=== PATIENT | female | born 1955 | race Caucasian/White ===

== ENCOUNTER → 2020-10-07 10:15 | Outpatient (CLI) | payer MEDICARE, SELFPAY ==
--- NOTE | 2020-10-07 10:18 | DI.RAD.S_ITS ---
PROCEDURE: XR LUMBAR SPINE MIN 4V INDICATIONS: lumbar radiculopathy TECHNIQUE: 5 views of the lumbar spine were acquired, including bilateral oblique views. COMPARISON: None. FINDINGS: Bones: 5 nonrib-bearing vertebrae are present. There is normal bony alignment. No vertebral body compression fractures. No suspicious bony lesions. Note is made of a minimal degree of degenerative disc height reduction but facet osteoarthritis is more prominent and becomes progressively more pronounced from L3 through S1. Soft tissues: Overlying bowel gas pattern is normal. No suspicious soft tissue calcifications. Oblique images: No pars defects. IMPRESSION: No compression fracture seen. Mild degenerative disc disease. Progressively greater facet osteoarthritis from L3 through S1 as the likely cause of significant back pain and reported radiculopathy. Dictated by: Chandan Monterroso M.D. on 10/07/2020 at 10:42 Approved by: Chandan Monterroso M.D. on 10/07/2020 at 10:43
== END ==
PROVIDERS: PCP Internal Medicine; Referring Provider Physical Medicine & Rehabilitation; Visit Provider Physical Medicine & Rehabilitation
DX: M51.16 Intervertebral disc disorders with radiculopathy, lumbar region (principal); M47.26 Other spondylosis with radiculopathy, lumbar region; M47.27 Other spondylosis with radiculopathy, lumbosacral region; M32.9 Systemic lupus erythematosus, unspecified; Z86.711 Personal history of pulmonary embolism
CPT/HCPCS: 72110; 99214

== ENCOUNTER 2020-12-17 12:36 | Outpatient (CLI) | payer MEDICARE, SELFPAY ==
--- NOTE | 2020-12-17 12:40 | DI.RAD.S_ITS ---
PROCEDURE: PAIN L/S TRANSFORAMINAL INJECT INDICATIONS: SPONDYLOSIS COMPARISON: None. FINDINGS: Fluoroscopic spot filming was performed to verify placement of spinal needles at the left L4-5 foramen level(s), as labeled on the films. Appropriate location(s) of the needle tip(s) was confirmed by injection of iodinated contrast. IMPRESSION: Successful needle tip localization on the left for transforaminal epidural steroid injection. Dictated by: Chandan Monterroso M.D. on 12/17/2020 at 16:15 Approved by: Chandan Monterroso M.D. on 12/17/2020 at 16:15
[2020-12-17 13:14] VITALS: BP 168/84; PULSE 68; RESP 17; TEMP 36.7; O2SAT 100
[2020-12-17] MEDS: IOPAMIDOL 15 ML VIAL 3 ML INJ (13:47)
[2020-12-17] MEDS: BUPIVACAINE 0.25% (PF) VIAL 2 ML INJ (13:48)
[2020-12-17] MEDS: DEXAMETHASONE 10 MG/ML VIAL 20 MG INJ (13:48)
[2020-12-17] MEDS: BETAMETHASONE 30 MG/5 ML MDV 6 MG INJ (13:48)
[2020-12-17 13:50] VITALS: BP 190/91; PULSE 66; RESP 10; O2SAT 100
[2020-12-17 13:51] VITALS: BP 175/84; PULSE 65; RESP 10; O2SAT 100
[2020-12-17 13:54] VITALS: BP 175/84; PULSE 68; RESP 10; O2SAT 100
--- NOTE | 2020-12-17 14:01 | P.PCN_ITS ---
Date/Time/Diagnoses Date of procedure: 12/17/20 Time of procedure: 14:01 Pre-procedure diagnosis: 1. FORAMINAL STENOSIS WITH LE SYMPTOMS Post-procedure diagnosis: same Procedure Notes Procedure: 1. FLUOROSCOPICALLY GUIDED CONTRAST CONTROLLED TRANSFORAMINAL EPIDURAL STEROID INJECTION - LEFT L4/5 Indications: Phuong is referred by Dr. Le for treatment of Foraminal Stenosis with Left LE Symptoms Physician: Brady Meza Total Fluoroscopy time (seconds): 20 Total sedation minutes: 0 Complications: none Procedure in detail & Post-procedure care: FINDINGS Foraminal Nerve Root Compression secondary to disc disease and facet hypertrophy DESCRIPTION OF PROCEDURE Following review of allergy and review of potential side effects and complications, including, but not necessarily limited to, infection, allergic reaction, local tissue breakdown, stroke, temporary or permanent nerve injury, paralysis, and possible , the patient indicated that the patient understood and agreed to proceed. An informed consent document was signed by the patient, witnessed by a nurse, and placed in the patient's chart. Additionally, other treatment options including medications, modalities, and physical therapy were reviewed with the patient. After review of previous anaesthesic history and IV conscious sedation the patient was deemed safe to proceed with today?s procedure with IV conscious sedation as ASA class II designation. Safety time-out was performed to confirm patient ID, procedure to be performed and site of procedure. IV sedation was deemed unnecessary and thus not administered by the RN after DO order, titrated to patient comfort during the course of the procedure while the patient remained responsive to all verbal commands In the prone position following sterile prep and drape of the lumbar region, the left L4/5 posterior neuroforamen was identified fluoroscopically. The skin was anesthetized via a 25-gauge 1.5-inch needle with 1% lidocaine solution. At this point, a 22-gauge 5-inch spinal needle was atraumatically introduced and advanced under fluoroscopic guidance through the posterior left L4/5 neuroforamen to approximately the anterior aspect of the canal. Depth was confirmed on lateral view. Following negative aspiration, injection of approximately 1.5 cc of Isovue 200 under live fluoroscopy in the AP view confirmed excellent flow along the nerve root, into the epidural space without vascular or intrathecal uptake observed Radiological data, including multiple fluoroscopic views of the lumbosacral spine, reveal a spinal needle at the left L4/5 posterior neuroforamen. Subsequent views show flow of contrast material flowing superiorly and inferiorly along the nerve root confirming epidural flow. Subsequently, a test dose of 1.5 cc of 1% lidocaine solution was administered and patient was observed for two minutes for signs or symptoms of complications, including abdominal pain, shortness of breath, bilateral upper or lower extre mity weakness, nausea and vomiting, prior to steroid injection. At this point, a total of 3cc or 20mg of dexamethasone and 6mg of betamethasone was injected without incident. The procedure tolerated the procedure well without signs or symptoms of complications prior to transfer to the recovery area continued monitoring without incident. The patient was then transferred to the recovery area where they were observed for an appropriate time after the injection. The patient reported a VAS score of 7 prior to the procedure and a post- procedure VAS of 0. POST OP INSTRUCTIONS The patient was provided a Pain Log to continue to record their response to the target-specific procedure prior to follow-up visit with their referring physician. Additionally, specific post-injection care instructions and a contact number to our office were provided if concerns arise regarding possible complications associated with the procedure are suspected.
== END 2020-12-17 14:29 | disposition home or self-care (01) ==
LOC: RAD 12:39
PROVIDERS: PCP Internal Medicine; Referring Provider Physical Medicine & Rehabilitation; Visit Provider Physical Medicine & Rehabilitation
DX: M48.061 Spinal stenosis, lumbar region without neurogenic claudication (principal); M51.16 Intervertebral disc disorders with radiculopathy, lumbar region
CPT/HCPCS: 64483; J0702; J1100; J2250; J3010

== ENCOUNTER 2021-02-20 08:10 | Outpatient (CLI) | payer MEDICARE, SELFPAY ==
[2021-02-20] VITALS (9 sets, daily range): BP systolic 137–179; BP diastolic 69–85; PULSE 72–84; RESP 16–25; TEMP 36.8; O2SAT 96–100
--- NOTE | 2021-02-20 08:11 | DI.RAD.S_ITS ---
PROCEDURE: PAIN L/S FACET INJ/BLK 1ST TONEY COMPARISON: [facility], XA, PAIN L/S TRANSFORAMINAL INJECT, 12/17/2020, 13:47. INDICATIONS: Bilateral L3-4 L4-5 facet joint injections FINDINGS: Fluoroscopic spot filming was performed to verify placement of spinal needles at the left L3-L4, L4-L5, and L5-S1 levels, as labeled on the films. Appropriate location of the needle tips was confirmed by injection of iodinated contrast. IMPRESSION: Intraprocedural examination within normal limits. Dictated by: Franco Hart M.D. on 02/20/2021 at 10:10 Approved by: Franco Hart M.D. on 02/20/2021 at 10:11
[2021-02-20] MEDS: MIDAZOLAM 5 MG/5 ML VIAL IV (09:44)
[2021-02-20] MEDS: fentaNYL 100 MCG/2 ML INJ 50 MCG IV (09:44)
[2021-02-20] MEDS: BUPIVACAINE 0.5% (PF) VIAL 5 ML INJ (09:52)
[2021-02-20] MEDS: IOPAMIDOL 15 ML VIAL 3 ML INJ (09:52)
[2021-02-20] MEDS: BETAMETHASONE 30 MG/5 ML MDV 12 MG INJ (09:53)
[2021-02-20] MEDS: LIDOCAINE 1% 20 ML 10 ML INJ (09:53)
--- NOTE | 2021-02-20 09:57 | P.PCN_ITS ---
Date/Time/Diagnoses Date of procedure: 02/20/21 Time of procedure: 09:57 Pre-procedure diagnosis: 1. FACET ARTHROPATHY, 2. AXIAL LBP, 3. MULTILEVEL DDD Post-procedure diagnosis: same Procedure Notes Procedure: 1. FLUOROSCOPICALLY GUIDED CONTRAST CONTROLLED FACET JOINT INJECTIONS LEFT L3/4, L4/5, L5/S1 Indications: Phuong is referred by Dr. Le for treatment of Axial LBP Physician: Brady Meza Total Fluoroscopy time (seconds): 9 Total sedation minutes: 10 Complications: none Procedure in detail & Post-procedure care: FINDINGS Multilevel Facet Arthropathy with Clinically significant axial LBP DESCRIPTION OF PROCEDURE Fluoroscopically guided, contrast-controlled left L3/4, L4/5, L5/S1 facet joint injections. Following review of allergy and review of potential side effects and complications, including, but not necessarily limited to, infection, allergic reaction, local tissue breakdown, stroke, temporary or permanent nerve injury, paralysis, and possible , the patient indicated that the patient understood and agreed to proceed. An informed consent document was signed by the patient, witnessed by a nurse, and placed in the patient's chart. Additionally, other treatment options including medications, modalities, and physical therapy were reviewed with the patient. After review of previous anaesthesic history and IV conscious sedation the patient was deemed safe to proceed with today?s procedure with IV conscious sedation as ASA class II designation. Safety time-out was performed to confirm patient ID, procedure to be performed and site of procedure. IV sedation was accomplished with a combination of 4mg of Versed and 50mcg of Fentanylwas administered by the RN after DO order, titrated to patient comfort during the course of the procedure while the patient remained responsive to all verbal commands. In the prone position, following sterile prep and drape of the lumbar region, the posterior aspect of the left L3/4, L4/5, L5/S1 facet joints were identified fluoroscopically. The skin was anesthetized via a 25-gauge 1.5-inch needle with 1% lidocaine solution into the corresponding facet joints. At this point, a 22- gauge 3.5-inch spinal needle was atraumatically introduced and advanced under fluoroscopic guidance into the corresponding facet joints. Following negative aspiration, injections of approximately 0.2-cc of Isovue 200 confirmed interarticular placement without vascular uptake. Radiological data, including multiple fluoroscopic views of the lumbosacral spine, reveal a spinal needle at the left L3/4, L4/5, L5/S1 facet joints. Subsequent views show flow of contrast material both superiorly and inferiorly within the joint space without vascular or intrathecal uptake. At this point, a total of 0.5 cc including a mixture of 0.25cc Marcaine and 0.25cc betamethasone was injected without complication into each of the corresponding facet joints. The procedure tolerated the procedure well without signs or symptoms of complications prior to transfer to the recovery area continued monitoring without incident. The patient was then transferred to the recovery area where they were observed for an appropriate period of time after the injection. The patient reported a VAS score of 7 prior to the procedure and a post-procedure VAS of 0. POST OP INSTRUCTIONS The patient was provided a Pain Log to continue to record their response to the target-specific procedure prior to follow-up visit with their referring physician. Additionally, specific post-injection care instructions and a contact number to our office were provided if concerns arise regarding possible complications associated with the procedure are suspected.
--- NOTE | 2021-02-20 10:13 | DI.RAD.S_ITS ---
PROCEDURE: XR KNEE LT 3V INDICATIONS: left knee pain TECHNIQUE: 3 views of the knee were acquired. COMPARISON: None. FINDINGS: Bones: No fractures or dislocations. No suspicious bony lesions. Patellofemoral and medial compartment moderate joint space narrowing with mild lateral compartmental joint space narrowing noted. No significant marginal osteophyte. Soft tissues: No joint effusion. No suspicious soft tissue calcifications. IMPRESSION: Moderate osteoarthritis without fracture. Approved by: Nikita Nieves M.D. on 02/20/2021 at 10:40
--- NOTE | 2021-02-20 10:27 | PC.NURSE ---
Patient to Xray prior to discharge. Stable post sedation.
== END 2021-02-20 10:29 | disposition home or self-care (01) ==
LOC: RAD 08:10
PROVIDERS: PCP Internal Medicine; Referring Provider Physical Medicine & Rehabilitation; Visit Provider Physical Medicine & Rehabilitation
DX: M47.816 Spondylosis without myelopathy or radiculopathy, lumbar region (principal); M17.12 Unilateral primary osteoarthritis, left knee; M47.817 Spondylosis without myelopathy or radiculopathy, lumbosacral region; M54.5 Low back pain; M51.36 Other intervertebral disc degeneration, lumbar region; M51.37 Other intervertebral disc degeneration, lumbosacral region
CPT/HCPCS: 64493; 64494; 64495; 73562; 99152; J0702; J2250; J3010

== ENCOUNTER → 2022-01-12 10:41 | Outpatient (CLI) | payer MEDICARE, SELFPAY ==
[2022-01-12 13:05] LABS: COVID19 -Nasal RAPID Negative (Negative)
== END ==
PROVIDERS: PCP Internal Medicine; Visit Provider Physical Medicine & Rehabilitation
DX: Z20.822 Contact with and (suspected) exposure to COVID-19 (principal)
CPT/HCPCS: 87635; C9803

== ENCOUNTER 2022-01-13 07:40 | Outpatient (CLI) | payer MEDICARE, SELFPAY ==
[2022-01-13] VITALS (7 sets, daily range): BP systolic 142–179; BP diastolic 67–96; PULSE 67–78; RESP 15–24; TEMP 36.4; O2SAT 99–100
--- NOTE | 2022-01-13 07:41 | DI.RAD.S_ITS ---
PROCEDURE: PAIN L/SI FACET INJ/BLK 1STL INDICATIONS: SPONDYLOSIS COMPARISON: [facility], , PAIN L/SI FACET INJ/BLK 1STL, 02/20/2021, 9:47. FINDINGS: Fluoroscopic spot filming was performed to verify placement of spinal needles at the left side of L3, L4, L5 and S1 level(s), as labeled on the films. Appropriate location(s) of the needle tip(s) was confirmed by injection of iodinated contrast. IMPRESSION: Fluoro guidance was provided intraoperatively for left L3 through S1 medial branch block to be performed by ordering physician. Dictated by: Jose Maria Phelan M.D. on 01/13/2022 at 10:25 Approved by: Jose Maria Phelan M.D. on 01/13/2022 at 10:26
[2022-01-13] MEDS: IOPAMIDOL 15 ML VIAL 3 ML INJ (09:23)
[2022-01-13] MEDS: LIDOCAINE 1% 20 ML INJ (09:24)
[2022-01-13] MEDS: BUPIVACAINE 0.5% (PF) VIAL 2 ML INJ (09:25)
--- NOTE | 2022-01-13 09:41 | P.PCN_ITS ---
Date/Time/Diagnoses Date of procedure: 01/13/22 Time of procedure: 09:42 Pre-procedure diagnosis: 1. FACET ARTHROPATHY Post-procedure diagnosis: same Procedure Notes Procedure: 1. Left L4, L5 and S1 MB BLOCKS LA Indications: Phuong is referred by Dr. Le for treatment of Left Axial LBP. Physician: Brady Meza Total Fluoroscopy time (seconds): 17 Total sedation minutes: 0 Complications: none Procedure in detail & Post-procedure care: DESCRIPTION OF PROCEDURE Fluoroscopically guided, contrast-controlled left L3, L4, L5 and S1 medial branch blocks with 0.5cc of 0.5% Marcaine. Following review of allergy and review of potential side effects and complications, including, but not necessarily limited to, infection, allergic reaction, local tissue breakdown, nerve injury, paralysis, stroke and possible , the patient indicated that the patient understood and agreed to proceed. An informed consent document was signed by the patient, witnessed by a nurse, and placed in the patient's chart. After review of previous anaesthesic history and IV conscious sedation the patient was deemed safe to proceed with today?s procedure with IV conscious sedation as ASA class II designation. Safety time-out was performed to confirm patient ID, procedure to be performed and site of procedure. IV sedation was deemed unnecessary and thus not administered by the RN after DO order, titrated to patient comfort during the course of the procedure while the patient remained responsive to all verbal commands. In the prone position, following sterile prep and drape of the lumbar region, the left L3, L4, L5 and S1 anatomical location of the medial branch of the dorsal ramus was identified fluoroscopically. Subsequently an anesthetic skin wheal using 1% lidocaine solution was initiated at each of the anatomical spots. Subsequently then a 22-gauge 3.5-inch spinal needle was atraumatically introduced and advanced under fluoroscopic guidance at each of the corresponding sites at the left L3, L4, L5 and S1 MB. After negative aspiration, 0.2cc of Isovue 200 was injected, confirming placement without vascular or intrathecal uptake. Subsequently then 0.5cc of 0.5% Marcaine solution was injected at each of the corresponding sites at the left L3, L4, L5 and S1 medial branch locations. The patient tolerated the procedure well without signs or symptoms of complications. The patient tolerated the procedure well without signs or symptoms of complications prior to transfer to the recovery area continued monitoring without incident. Post-procedure, the patient was monitored initiating provocative activities to measure the amount of relief from block of the facetogenic pain. The patient reported a VAS of 7 prior to the procedure and a post-procedure VAS of 1. It has been a pleasure to assist in the diagnostic and therapeutic care of your patient. POST OP INSTRUCTIONS The patient was provided with a Pain Log to complete over the next several hours and subsequent days prior to the patient's follow up with the ordering physician. If the patient has intellectual property legal assistant relief to the solution applied, then they may be a candidate for medial branch rhizotomy. The patient is aware, was provided, once again, with a Pain Log and will follow up with the referring physician for review and clinical correlation.
== END 2022-01-13 09:51 | disposition home or self-care (01) ==
PROVIDERS: PCP Internal Medicine; Referring Provider Physical Medicine & Rehabilitation; Visit Provider Physical Medicine & Rehabilitation
DX: M47.816 Spondylosis without myelopathy or radiculopathy, lumbar region (principal); M47.817 Spondylosis without myelopathy or radiculopathy, lumbosacral region
CPT/HCPCS: 64493; 64494; 64495; J2250